=== PATIENT | male | born 1990 | race Caucasian/White ===

== ENCOUNTER 2018-06-16 01:33 | Inpatient (IN) | payer OTHER ==
--- NOTE | 2018-06-16 03:02 | ED PDOC ---
Arrival/HPI - General Chief Complaint: Alcohol Ingestion Time Seen by Provider: 06/16/18 02:16 Historian: Patient - History of Present Illness Narrative History of Present Illness (Text): 27 year old male, with no significant past medical history, presents to the emergency department brought in by EMS and [place] police department for alcohol intoxication tonight. Patient admits to taking 2 Xanax and drinking 2 quart size beer cans tonight. Patient states he told his brother that he was going to kill himself, so his brother called the police. Patient denies any current suicidal/homicidal ideation. He denies any OD. He denies any psych history. Patient denies any fever, chills, chest pain, shortness of breath, nausea, vomiting, diarrhea, urinary symptoms, back pain, neck pain, headache, dizziness, or any other complaints. Time/Duration: Prior to Arrival Symptom Onset: Gradual Activities at Onset: Light Context: Home Past Medical History - Provider Review Nursing Documentation Reviewed: Yes - Infectious Disease Hx of Infectious Diseases: None - Tetanus Immunization Tetanus Immunization: Up to Date - Past Medical History Past Medical History: No Previous - Cardiac Hx Cardiac Disorders: No - Psychiatric Hx Depression: No Hx Emotional Abuse: No Hx Physical Abuse: No Hx Substance Use: Yes - Past Surgical History Past Surgical History: No Previous - Anesthesia Hx Anesthesia: No - Suicidal Assessment Feels Threatened In Home Enviroment: No Family/Social History - Physician Review Nursing Documentation Reviewed: Yes Family/Social History: No Known Family HX Smoking Status: Heavy Smoker > 10 Cigarettes Daily Hx Alcohol Use: Yes Frequency of alcohol use: Daily Hx Substance Use: Yes Substance used: marijuana Amount: 3 Hx Substance Use Treatment: No Allergies/Home Meds Allergies/Adverse Reactions: Allergies No Known Allergies Allergy (Verified 06/16/18 01:56) Home Medications: Home Meds Medication Instructions Recorded Confirmed No Known Home Med 06/16/18 06/16/18 Review of Systems - Physician Review All systems were reviewed & negative as marked: Yes - Review of Systems Constitutional: absent: Fatigue, Weight Change, Fevers, Night Sweats Eyes: absent: Vision Changes, Photophobia, Eye Pain ENT: absent: Hearing Changes, Tinnitus Respiratory: absent: SOB Cardiovascular: absent: Chest Pain Gastrointestinal: absent: Abdominal Pain, Diarrhea, Nausea, Vomiting Genitourinary Male: absent: Dysuria, Frequency, Hematuria Musculoskeletal: absent: Arthralgias, Back Pain, Neck Pain Neurological: absent: Headache, Dizziness Psychiatric: Suicidal Ideation (not currently). absent: Other (homicidal ideation) Physical Exam Vital Signs Reviewed: Yes Vital Signs Temp Pulse Resp BP Pulse Ox 06/16/18 01:57 97.6 F 94 H 18 158/89 H 100 Temperature: Afebrile Blood Pressure: Hypertensive Pulse: Regular Respiratory Rate: Normal Appearance: Positive for: Well-Appearing, Non-Toxic, Comfortable Pain Distress: None Mental Status: Positive for: Alert and Oriented X 3 - Systems Exam Head: Present: Atraumatic, Normocephalic Pupils: Present: PERRL Extroacular Muscles: Present: EOMI Conjunctiva: Present: Normal Mouth: Present: Moist Mucous Membranes Neck: Present: Normal Range of Motion. No: Meningeal Signs, MIDLINE TENDERNESS Respiratory/Chest: Present: Clear to Auscultation, Good Air Exchange. No: Respiratory Distress, Accessory Muscle Use Cardiovascular: Present: Regular Rate and Rhythm, Normal S1, S2. No: Murmurs Abdomen: No: Tenderness, Distention, Peritoneal Signs Back: Present: Normal Inspection Upper Extremity: Present: Normal Inspection. No: Cyanosis, Edema Lower Extremity: Present: Normal Inspection. No: Edema Neurological: Present: GCS=15, CN II-XII Intact, Speech Normal, Motor Func Grossly Intact, Normal Sensory Function, Normal Cerebellar Funct, Gait Normal Skin: Present: Warm, Dry, Normal Color. No: Rashes Psychiatric: Present: Alert, Oriented x 3, Normal Insight, Normal Concentration, Intoxicated Medical Decision Making ED Course and Treatment: 06/16/18 03:02 Impression: 27 year old male presents for alcohol intoxication and suicidal ideation tonight. Denies any hx of psych issues or OD Plan: -- EKG -- Labs -- CXR -- Urinalysis -- One to One -- PES Eval after patient medically cleared. -- Reassess and disposition Prior Visits: Notes and results from previous visits were reviewed. Progress Notes: EKG shows NSR at 91 BPM with no STEMI. Interpreted by me. CXR Impression: As read by [email or web address]. 06/16/18 04:00 Tylenol level elevated: denies any history of tylenol ingestion. Likely Tylenol OD w/ out known ingestion. Will seek medical admission and poison control. Informed pt that he is not medically clear and that he will have to stay for admission 06/16/18 04:35 Code ashlie called. Patient aggressive and trying to leave. Patient will be restra ined and sedated for the safety of himself and the staff. 06/16/18 04:40 RN discussed case with Poison control who recommends Telemetry admission and NAC. 06/16/18 04:46 NAC ordered Case discussed with biomedical engineering technician and Dr. Alexandra who is aware and agrees with the plan. Accepts patient into hospitalist service. - Lab Interpretations I have reviewed the lab results: Yes - EKG Interpretation Interpreted by ED Physician: Yes Type: 12 lead EKG - Scribe Statement The provider has reviewed the documentation as recorded by the Slava Betancourt Provider Scribe Attestation: All medical record entries made by the Chiquitaibfransisca were at my direction and personally dictated by me. I have reviewed the chart and agree that the record accurately reflects my personal performance of the history, physical exam, medical decision making, and the department course for this patient. I have also personally directed, reviewed, and agree with the discharge instructions and disposition. Disposition/Present on Arrival - Present on Arrival Any Indicators Present on Arrival: No History of DVT/PE: No History of Uncontrolled Diabetes: No Urinary Catheter: No History of Decub. Ulcer: No History Surgical Site Infection Following: None - Disposition Have Diagnosis and Disposition been Completed?: Yes Diagnosis: Tylenol overdose, Suicidal ideation Disposition Time: 04:35 Condition: GUARDED
[2018-06-16 03:15] LABS: PH,URINE 5.5 (4.7-8.0); URINE BILIRUBIN NEGATIVE (NEGATIVE); URINE BLOOD NEGATIVE (NEGATIVE); URINE GLUCOSE (UA) NEGATIVE (NEGATIVE); URINE LEUKOCYTE ESTERASE NEGATIVE Leu/uL (NEGATIVE); URINE PROTEIN 30 mg/dL (<30 mg/dL); URINE UROBILINOGEN 0.2 E.U./dL (<1 E.U./dL)
[2018-06-16 03:16] LABS: BASO # 0.03 K/mm3 (0.0-2.0); BASO % 0.3 % (0.0-3.0); EOS # 0.3 (0.0-0.7); EOS % 3.7 % (1.5-5.0); GRAN # 5.1 (1.4-6.5); GRAN % 55.6 % (50.0-68.0); HEMOGLOBIN 16.2 g/dL (14.0-18.0); LYMPH # 3.2 (1.2-3.4); LYMPH % 35.3 % (22.0-35.0); MEAN CELL VOLUME 87.3 fl (80.0-105.0); MEAN CORPUSCULAR HEMOGLOBIN 31.3 pg (25.0-35.0); MEAN CORPUSCULAR HGB CONC 35.8 g/dl (31.0-37.0); MEAN PLATELET VOLUME 9.4 fl (7.0-11.0); MONO # 0.5 (0.1-0.6); MONO % 5.1 % (1.0-6.0); RBC 5.18 10^6/uL (3.5-6.1); URINE APPEARANCE CLEAR (CLEAR); URINE COLOR YELLOW (YELLOW); WHITE BLOOD COUNT 9.2 10^3/ul (4.5-11.0)
[2018-06-16 03:26] LABS: ALB/GLOB RATIO 1.5 (1.1-1.8); ALBUMIN 5.3 g/dL (3.0-4.8); ALT/SGPT 21 U/L (7-56); AST/SGOT 34 U/L (17-59); BLOOD UREA NITROGEN 11 mg/dL (7-21); CALCIUM 9.4 mg/dL (8.4-10.5); GFR NON-AFRICAN AMERICAN > 60
[2018-06-16 03:29] LABS: URINE BACTERIA FEW (NEG); URINE EPITHELIAL CELLS 0 - 2 /hpf (0-5); URINE RBC 0 - 2 /hpf (0-2); URINE WBC 0 - 2 /hpf (0-6)
[2018-06-16 03:31] LABS: SALICYLATE < 1 mg/dL (2.0-20.0)
[2018-06-16 03:45] LABS: BARBITURATES, UR NEGATIVE (NEGATIVE); BENZODIAZEPINES, UR POSITIVE (NEGATIVE); OPIATES, UR NEGATIVE (NEGATIVE); PHENCYCLIDINE, UR POSITIVE (NEGATIVE)
[2018-06-16] MEDS ORDERED: DiphenhydrAMINE 50 mg/ml Inj IVP STA (04:38)
[2018-06-16] MEDS ORDERED: ACETYLCYSTEINE IVPB ONE ×3 (04:43→10:15)
[2018-06-16] MEDS ORDERED: DEXTROSE 5% IVPB ONE ×3 (04:43→10:15)
[2018-06-16] MEDS ORDERED: WATER IVPB ONE ×3 (04:43→10:15)
--- NOTE | 2018-06-16 05:17 | CP.PCM.HP ---
<Alisa Davis - Last Filed: 06/16/18 06:22> History of Present Illness - History of Present Illness History of Present Illness: Admission: Tylenol OD, polysubstance abuse, and ETOH intoxication Mr Luis Christopher, 27 M, active smoker, with no significant past medical history, presents to the emergency department brought in by EMS and [place] police department for alcohol intoxication tonight. Pt is currently chemically sedated with 4 point restraint, so history is limited and mostly relies on ED record Patient admits to taking 2 Xanax and drinking 2 quart size beer cans tonight. Patient states that he told his brother that he was going to kill himself, so his brother called the police. n the ED, VS stable, CBC, CMP are unremarkable. U/A negative for infection. UDS (+) elevated acetaminophen @ 36. (+) phencyclidine, Benzo, and cannabinoids. SHANITA 205. Pt has ingested tylenol for un known amount unknown how long ago. Per ED doc, Poison Control was contacted, started NAC. In the ED, Evans dailey called. Patient aggressive and trying to leave. Patient was restrained and sedated for the safety of himself and the staff with haldol 5 and benadryl 50. EKG shows NSR at [address]/TW changes. QTc 445. CXR shows no active disease, read by me, pending official read. Patient denies any current suicidal/homicidal ideation. denies any psych history. denies any fever, chills, chest pain, shortness of breath, nausea, vomiting, diarrhea, urinary symptoms, back pain, neck pain, headache, dizziness, or any other complaints. PMHx Polysubstance abuse Active smoker PSH unobtainable FH unobtainable SH Active smoker, polysubstance abuse All - NKDA Med - unobtainable PMD - unobtainable Pharmacy - unobtainable Present on Admission - Present on Admission Any Indicators Present on Admission: No Past Patient History - Infectious Disease Hx of Infectious Diseases: None - Tetanus Immunizations Tetanus Immunization: Up to Date - Past Social History Smoking Status: Heavy Smoker > 10 Cigarettes Daily - CARDIAC Hx Cardiac Disorders: No - PULMONARY Hx Tuberculosis: No - NEUROLOGICAL HX Cerebrovascular Accident: No Hx Seizures: No - HEMATOLOGICAL/ONCOLOGICAL Hx Cancer: No Hx Human Immunodeficiency Virus (HIV): No - GENITOURINARY/GYNECOLOGICAL Hx Sexually Transmitted Disorders: No - PSYCHIATRIC Hx Depression: No Hx Emotional Abuse: No Hx Physical Abuse: No Hx Substance Use: Yes - ANESTHESIA Hx Anesthesia: No Meds Allergies/Adverse Reactions: Allergies Allergy/AdvReac Type Severity Reaction Status Date / Time No Known Allergies Allergy Verified 06/16/18 01:56 Physical Exam - Constitutional Additional comments: chemically sedated - Head Exam Head Exam: ATRAUMATIC, NORMAL INSPECTION, NORMOCEPHALIC - Eye Exam Eye Exam: Conjunctival injection Additional comments: pupil constricted 1mm b/l, - ENT Exam ENT Exam: Mucous Membranes Moist - Neck Exam Additional comments: Supple, No JVD - Respiratory Exam Respiratory Exam: Clear to Auscultation Bilateral Additional comments: Bronchial sounds - Cardiovascular Exam Cardiovascular Exam: REGULAR RHYTHM, +S1, +S2 - GI/Abdominal Exam GI & Abdominal Exam: Normal Bowel Sounds, Soft. absent: Distended, Firm, Guarding, Rebound, Rigid - Extremities Exam Extremities exam: Positive for: normal capillary refill, normal inspection, pedal pulses present. Negative for: pedal edema - Neurological Exam Additional comments: chemically sedated. move to localized pain. snore occasionally - Psychiatric Exam Psychiatric exam: Flat Affect - Skin Skin Exam: Dry, Warm Results - Vital Signs Recent Vital Signs: Last Vital Signs Temp 97.6 F 06/16/18 01:57 Pulse 94 H 06/16/18 01:57 Resp 18 06/16/18 01:57 BP 158/89 H 06/16/18 01:57 Pulse Ox 100 06/16/18 01:57 - Labs Result Diagrams: 06/16/18 03:02 06/16/18 03:02 Labs: Laboratory Results - last 24 hr 06/16/18 06/16/18 06/16/18 03:02 03:02 03:02 WBC 9.2 RBC 5.18 Hgb 16.2 Hct 45.2 MCV 87.3 MCH 31.3 MCHC 35.8 RDW 12.0 Plt Count 267 MPV 9.4 Gran % 55.6 Lymph % (Auto) 35.3 H [place] % (Auto) 5.1 Eos % (Auto) 3.7 Baso % (Auto) 0.3 Gran # 5.10 Lymph # (Auto) 3.2 [place] # (Auto) 0.5 Eos # (Auto) 0.3 Baso # (Auto) 0.03 Sodium 146 Potassium 3.9 Chloride 107 Carbon Dioxide 24 Anion Gap 19 BUN 11 Creatinine 1.1 Est GFR ( Amer) > 60 Est GFR (Non-Af Amer) > 60 Random Glucose 104 Calcium 9.4 Magnesium 2.4 H Total Bilirubin 0.4 AST 34 ALT 21 Alkaline Phosphatase 77 Total Protein 8.8 H Albumin 5.3 H Globulin 3.5 Albumin/Globulin Ratio 1.5 Urine Color Yellow Urine Appearance Clear Urine pH 5.5 Ur Specific [place] >= 1.030 Urine Protein 30 H Urine Glucose (UA) Negative Urine Ketones Negative Urine Blood Negative Urine Nitrate Negative Urine Bilirubin Negative Urine Urobilinogen 0.2 Ur Leukocyte Esterase Negative Urine RBC 0 - 2 Urine WBC 0 - 2 Ur Epithelial Cells 0 - 2 Urine Bacteria Few Salicylates Urine Opiates Screen Urine Methadone Screen Acetaminophen Ur Barbiturates Screen Ur Phencyclidine Scrn Ur Amphetamines Screen U Benzodiazepines Scrn U Oth Cocaine Metabols U Cannabinoids Screen Alcohol, Quantitative 06/16/18 06/16/18 06/16/18 03:02 03:02 03:02 WBC RBC Hgb Hct MCV MCH MCHC RDW Plt Count MPV Gran % Lymph % (Auto) [place] % (Auto) Eos % (Auto) Baso % (Auto) Gran # Lymph # (Auto) [place] # (Auto) Eos # (Auto) Baso # (Auto) Sodium Potassium Chloride Carbon Dioxide Anion Gap BUN Creatinine Est GFR ( Amer) Est GFR (Non-Af Amer) Random Glucose Calcium Magnesium Total Bilirubin AST ALT Alkaline Phosphatase Total Protein Albumin Globulin Albumin/Globulin Ratio Urine Color Urine Appearance Urine pH Ur Specific [place] Urine Protein Urine Glucose (UA) Urine Ketones Urine Blood Urine Nitrate Urine Bilirubin Urine Urobilinogen Ur Leukocyte Esterase Urine RBC Urine WBC Ur Epithelial Cells Urine Bacteria Salicylates < 1 L Urine Opiates Screen Negative Urine Methadone Screen Negative Acetaminophen 36.0 H Ur Barbiturates Screen Negative Ur Phencyclidine Scrn Positive H Ur Amphetamines Screen Negative U Benzodiazepines Scrn Positive H U Oth Cocaine Metabols Negative U Cannabinoids Screen Positive H Alcohol, Quantitative 205 H Assessment & Plan - Assessment and Plan (Free Text) Plan: Mr Luis Christopher, 27 M, active smoker, with no significant past medical history, admitted for tylenol overdose, polysubstance abuse (+) phencyclidine, Benzo, and cannabinoids, and alcohol intoxication (SHANITA 205). Pt had thought about suicide prior to ED arrival but denied suidical ideation in ED. Evans dailey was called in ED and Patient is currently on 4-point restrain with chemical sedation with haldol 5 and benadryl 50 for the safety of himself and the staff. Tylenol overdose - Nac - follow up on liver function test - poison control contact polysubstance abuse (+) phencyclidine, Benzo, and cannabinoids - Continuous CO2 monitor - neuro check - staff counsel for cessation after pt wakes up ETOH intoxication - CIWA with ativan PRN, banana bag because pt is chemically sedated - Avoid librium due to tylenol overdose and its effect on liver - staff counsel for cessation Active smoker - May add nicoderm patch after pt awake Behavioral issue, likely from PCP - restrain PRN - Psych consult - continous CO2 monitor/neuro check while under chemical sedation Questionable Suicidal ideation (SI) - No need 1:1 for now because pt denied SI in ED - Psych on board NPO for now as pt is chemically sedated Pepcid IV for GI stress ulcer prevention Heparin SC for DVT prevention Aspiration precautions s/r/d w Dr Ruiz <Jordana Ruiz - Last Filed: 06/17/18 02:28> Results - Vital Signs Recent Vital Signs: Last Vital Signs Temp 98.8 F 06/17/18 00:01 Pulse 73 06/17/18 00:01 Resp 19 06/17/18 00:01 BP 131/70 06/17/18 00:01 Pulse Ox 100 06/17/18 00:01 - Labs Result Diagrams: 06/16/18 03:02 06/16/18 03:02 Labs: Laboratory Results - last 24 hr 06/16/18 06/16/18 06/16/18 03:02 03:02 03:02 WBC 9.2 RBC 5.18 Hgb 16.2 Hct 45.2 MCV 87.3 MCH 31.3 MCHC 35.8 RDW 12.0 Plt Count 267 MPV 9.4 Gran % 55.6 Lymph % (Auto) 35.3 H [place] % (Auto) 5.1 Eos % (Auto) 3.7 Baso % (Auto) 0.3 Gran # 5.10 Lymph # (Auto) 3.2 [place] # (Auto) 0.5 Eos # (Auto) 0.3 Baso # (Auto) 0.03 Sodium 146 Potassium 3.9 Chloride 107 Carbon Dioxide 24 Anion Gap 19 BUN 11 Creatinine 1.1 Est GFR ( Amer) > 60 Est GFR (Non-Af Amer) > 60 Random Glucose 104 Calcium 9.4 Magnesium 2.4 H Total Bilirubin 0.4 AST 34 ALT 21 Alkaline Phosphatase 77 Total Protein 8.8 H Albumin 5.3 H Globulin 3.5 Albumin/Globulin Ratio 1.5 Urine Color Yellow Urine Appearance Clear Urine pH 5.5 Ur Specific [place] >= 1.030 Urine Protein 30 H Urine Glucose (UA) Negative Urine Ketones Negative Urine Blood Negative Urine Nitrate Negative Urine Bilirubin Negative Urine Urobilinogen 0.2 Ur Leukocyte Esterase Negative Urine RBC 0 - 2 Urine WBC 0 - 2 Ur Epithelial Cells 0 - 2 Urine Bacteria Few Salicylates Urine Opiates Screen Urine Methadone Screen Acetaminophen Ur Barbiturates Screen Ur Phencyclidine Scrn Ur Amphetamines Screen U Benzodiazepines Scrn U Oth Cocaine Metabols U Cannabinoids Screen Alcohol, Quantitative 06/16/18 06/16/18 06/16/18 03:02 03:02 03:02 WBC RBC Hgb Hct MCV MCH MCHC RDW Plt Count MPV Gran % Lymph % (Auto) [place] % (Auto) Eos % (Auto) Baso % (Auto) Gran # Lymph # (Auto) [place] # (Auto) Eos # (Auto) Baso # (Auto) Sodium Potassium Chloride Carbon Dioxide Anion Gap BUN Creatinine Est GFR ( Amer) Est GFR (Non-Af Amer) Random Glucose Calcium Magnesium Total Bilirubin AST ALT Alkaline Phosphatase Total Protein Albumin Globulin Albumin/Globulin Ratio Urine Color Urine Appearance Urine pH Ur Specific [place] Urine Protein Urine Glucose (UA) Urine Ketones Urine Blood Urine Nitrate Urine Bilirubin Urine Urobilinogen Ur Leukocyte Esterase Urine RBC Urine WBC Ur Epithelial Cells Urine Bacteria Salicylates < 1 L Urine Opiates Screen Negative Urine Methadone Screen Negative Acetaminophen 36.0 H Ur Barbiturates Screen Negative Ur Phencyclidine Scrn Positive H Ur Amphetamines Screen Negative U Benzodiazepines Scrn Positive H U Oth Cocaine Metabols Negative U Cannabinoids Screen Positive H Alcohol, Quantitative 205 H Attending/Attestation - Attestation I have personally seen and examined this patient.: No I have fully participated in the care of the patient.: Yes I have reviewed all pertinent clinical information: Yes Notes (Text): 06/17/18 02:28 pt. was seen, but not examined nor interviewed because at time seen pt. was heavily sedated.
[2018-06-16] MEDS: Folic Acid 1 MG, Thiamine 100 MG, Multivitamin (MVI) 10 ML in Dextrose 5% In Water 1,00... IV SCH (06:06)
--- NOTE | 2018-06-16 10:33 | CARD ---
APPROVED REPORT Date of service: 06/16/2018 EKG Measurement Heart [id number] <Conclusion> Normal sinus rhythm Normal Electrocardiogram
--- NOTE | 2018-06-16 11:09 | RAD ---
Date of service: 06/16/2018 HISTORY: med clear COMPARISON: No prior. FINDINGS: LUNGS: No active pulmonary disease. PLEURA: No significant pleural effusion identified, no pneumothorax apparent. CARDIOVASCULAR: Normal. OSSEOUS STRUCTURES: No significant abnormalities. VISUALIZED UPPER ABDOMEN: Normal. OTHER FINDINGS: None. IMPRESSION: No active disease.
[2018-06-16 13:55] VITALS: BMI 22.8
[2018-06-16] MEDS ORDERED: Influenza Vaccine 60 mcg/0.5 mL SYR (4YR UP) IM ONE (13:55)
[2018-06-16] MEDS ORDERED: Pneumococcal 23-Valent Vaccine IM ONE (13:55)
[2018-06-17] MEDS: Folic Acid 1 MG, Thiamine 100 MG, Multivitamin (MVI) 10 ML in Dextrose 5% In Water 1,00... IV SCH (05:54)
[2018-06-17 07:46] VITALS: O2SAT 98
[2018-06-17 07:54] LABS: BASO # 0.02 K/mm3 (0.0-2.0); BASO % 0.3 % (0.0-3.0); EOS # 0.3 (0.0-0.7); EOS % 4.8 % (1.5-5.0); GRAN # 3.16 (1.4-6.5); HEMOGLOBIN 15.5 g/dL (14.0-18.0); LYMPH # 2.2 (1.2-3.4); MEAN CELL VOLUME 86.2 fl (80.0-105.0); MEAN CORPUSCULAR HEMOGLOBIN 30.6 pg (25.0-35.0); MEAN CORPUSCULAR HGB CONC 35.5 g/dl (31.0-37.0); MEAN PLATELET VOLUME 9.6 fl (7.0-11.0); MONO # 0.4 (0.1-0.6); MONO % 6.9 % (1.0-6.0); RBC 5.07 10^6/uL (3.5-6.1); RED CELL DISTRIBUTION WIDTH 11.9 % (11.5-14.5); WHITE BLOOD COUNT 6.1 10^3/ul (4.5-11.0)
[2018-06-17 08:47] LABS: ALBUMIN 4.5 g/dL (3.0-4.8); BLOOD UREA NITROGEN 7 mg/dL (7-21); CALCIUM 10.2 mg/dL (8.4-10.5); GFR NON-AFRICAN AMERICAN > 60
[2018-06-17 08:48] LABS: ALB/GLOB RATIO 1.5 (1.1-1.8); ALT/SGPT 25 U/L (7-56); AST/SGOT 50 U/L (17-59)
[2018-06-17] MEDS ORDERED: Potassium Chloride 20 mEq ER Tab PO ONE (11:08)
--- NOTE | 2018-06-17 11:22 | CP.PCM.PN ---
Subjective - Date & Time of Evaluation Date of Evaluation: 06/17/18 Time of Evaluation: 08:30 - Subjective Subjective: PGY-1 Lexy Grey D.O. Medicine progress note for Dr. Morgan's service: Patient was seen and examined this morning. Objective - Vital Signs/Intake and Output Vital Signs (last 24 hours): Temp Pulse Resp BP Pulse Ox 97.6 F 83 22 129/92 H 98 06/17/18 06:00 06/17/18 06:00 06/17/18 06:00 06/17/18 06:00 06/17/18 06:00 Intake and Output: 06/17/18 06/17/18 06:59 18:59 Intake Total 1883 Balance 1883 - Medications Medications: Current Medications Famotidine (Pepcid) 20 mg IVP DAILY [facility] Last Admin: 06/17/18 10:19 Dose: 20 mg Heparin Sodium (Porcine) (Heparin) 5,000 units SC Q8 DION; Protocol Last Admin: 06/17/18 05:50 Dose: 5,000 units Folic Acid 1 mg/ Thiamine HCl 100 mg/ Multivitamins/Vitamin C 10 ml/ Dextrose 1,011.2 mls @ 100 mls/hr IV .[id number] DION Last Admin: 06/17/18 05:54 Dose: 100 mls/hr Lorazepam (Ativan) 2 mg IVP Q4 PRN; Protocol PRN Reason: Agitation Last Admin: 06/16/18 22:29 Dose: 2 mg - Labs Labs: 06/17/18 07:00 06/17/18 07:00
--- NOTE | 2018-06-17 12:02 | CP.PCM.DIS ---
<Lexy Grey - Last Filed: 06/17/18 12:09> Provider - Provider Date of Admission: 06/16/18 04:46 Attending physician: Boom Morgan MD Primary care physician: none Consults: psychiatry Time Spent in preparation of Discharge (in minutes): 45 Diagnosis - Discharge Diagnosis (1) Tylenol overdose Status: Resolved Priority: High (2) Alcohol intoxication Status: Resolved Priority: High (3) Polysubstance abuse Status: Chronic Priority: High Hospital Course - Lab Results Lab Results: Most Recent Lab Values WBC 6.1 10^3/ul (4.5-11.0) D 06/17/18 07:00 RBC 5.07 10^6/uL (3.5-6.1) 06/17/18 07:00 Hgb 15.5 g/dL (14.0-18.0) 06/17/18 07:00 Hct 43.7 % (42.0-52.0) 06/17/18 07:00 MCV 86.2 fl (80.0-105.0) 06/17/18 07:00 MCH 30.6 pg (25.0-35.0) 06/17/18 07:00 MCHC 35.5 g/dl (31.0-37.0) 06/17/18 07:00 RDW 11.9 % (11.5-14.5) 06/17/18 07:00 Plt Count 247 10^3/uL (120.0-450.0) 06/17/18 07:00 MPV 9.6 fl (7.0-11.0) 06/17/18 07:00 Gran % 52.0 % (50.0-68.0) 06/17/18 07:00 Lymph % (Auto) 36.0 % (22.0-35.0) H 06/17/18 07:00 Dupage % (Auto) 6.9 % (1.0-6.0) H 06/17/18 07:00 Eos % (Auto) 4.8 % (1.5-5.0) 06/17/18 07:00 Baso % (Auto) 0.3 % (0.0-3.0) 06/17/18 07:00 Gran # 3.16 (1.4-6.5) 06/17/18 07:00 Lymph # (Auto) 2.2 (1.2-3.4) 06/17/18 07:00 Dupage # (Auto) 0.4 (0.1-0.6) 06/17/18 07:00 Eos # (Auto) 0.3 (0.0-0.7) 06/17/18 07:00 Baso # (Auto) 0.02 K/mm3 (0.0-2.0) 06/17/18 07:00 Sodium 138 mmol/L (132-148) 06/17/18 07:00 Potassium 3.5 mmol/L (3.6-5.0) L 06/17/18 07:00 Chloride 100 mmol/L (98-107) 06/17/18 07:00 Carbon Dioxide 28 mmol/L (21-33) 06/17/18 07:00 Anion Gap 13 (10-20) 06/17/18 07:00 BUN 7 mg/dL (7-21) 06/17/18 07:00 Creatinine 1.0 mg/dl (0.8-1.5) 06/17/18 07:00 Est GFR ( Amer) > 60 06/17/18 07:00 Est GFR (Non-Af Amer) > 60 06/17/18 07:00 Random Glucose 94 mg/dL (70-110) 06/17/18 07:00 Calcium 10.2 mg/dL (8.4-10.5) 06/17/18 07:00 Phosphorus 3.6 mg/dL (2.5-4.5) 06/17/18 07:00 Magnesium 2.2 mg/dL (1.7-2.2) 06/17/18 07:00 Total Bilirubin 1.6 mg/dL (0.2-1.3) H 06/17/18 07:00 AST 50 U/L (17-59) 06/17/18 07:00 ALT 25 U/L (7-56) 06/17/18 07:00 Alkaline Phosphatase 74 U/L (38-126) 06/17/18 07:00 Total Protein 7.6 g/dL (5.8-8.3) 06/17/18 07:00 Albumin 4.5 g/dL (3.0-4.8) 06/17/18 07:00 Globulin 3.1 gm/dL 06/17/18 07:00 Albumin/Globulin Ratio 1.5 (1.1-1.8) 06/17/18 07:00 Urine Color Yellow (YELLOW) 06/16/18 03:02 Urine Appearance Clear (CLEAR) 06/16/18 03:02 Urine pH 5.5 (4.7-8.0) 06/16/18 03:02 Ur Specific Freedom >= 1.030 (1.005-1.035) 06/16/18 03:02 Urine Protein 30 mg/dL (<30 mg/dL) H 06/16/18 03:02 Urine Glucose (UA) Negative mg/dL (NEGATIVE) 06/16/18 03:02 Urine Ketones Negative mg/dL (NEGATIVE) 06/16/18 03:02 Urine Blood Negative (NEGATIVE) 06/16/18 03:02 Urine Nitrate Negative (NEGATIVE) 06/16/18 03:02 Urine Bilirubin Negative (NEGATIVE) 06/16/18 03:02 Urine Urobilinogen 0.2 E.U./dL (<1 E.U./dL) 06/16/18 03:02 Ur Leukocyte Esterase Negative Alexander/uL (NEGATIVE) 06/16/18 03:02 Urine RBC 0 - 2 /hpf (0-2) 06/16/18 03:02 Urine WBC 0 - 2 /hpf (0-6) 06/16/18 03:02 Ur Epithelial Cells 0 - 2 /hpf (0-5) 06/16/18 03:02 Urine Bacteria Few (NEG) 06/16/18 03:02 Salicylates < 1 mg/dL (2.0-20.0) L 06/16/18 03:02 Urine Opiates Screen Negative (NEGATIVE) 06/16/18 03:02 Urine Methadone Screen Negative (NEGATIVE) 06/16/18 03:02 Acetaminophen < 10.0 ug/ml (10.0-20.0) L 06/17/18 07:00 Ur Barbiturates Screen Negative (NEGATIVE) 06/16/18 03:02 Ur Phencyclidine Scrn Positive (NEGATIVE) H 06/16/18 03:02 Ur Amphetamines Screen Negative (NEGATIVE) 06/16/18 03:02 U Benzodiazepines Scrn Positive (NEGATIVE) H 06/16/18 03:02 U Oth Cocaine Metabols Negative (NEGATIVE) 06/16/18 03:02 U Cannabinoids Screen Positive (NEGATIVE) H 06/16/18 03:02 Alcohol, Quantitative 205 mg/dL (0-10) H 06/16/18 03:02 - Hospital Course Hospital Course: Mr Luis Christopher, 27 M, active smoker, with no significant past medical history, presents to the emergency department brought in by EMS and [place] police department for alcohol intoxication tonight. He is currently chemically sedated with 4 point restraint, so history is limited and mostly relies on ED record. Patient admits to taking 2 Xanax and drinking 2 quart size beer cans tonight. Patient states that he told his brother that he was going to kill himself, so his brother called the police. In the ED, VS stable, CBC, CMP are unremarkable. UA negative for infection. UDS (+) elevated acetaminophen at 36. (+) phencyclidine, benzos, and cannabinoids. BAL 205. Patient has ingested tylenol for unknown amount unknown how long ago. Per ED doctor, Poison Control was conta cted, started NAC. In the ED, Evans dailey called. Patient aggressive and trying to leave. Patient was restrained and sedated for the safety of himself and the staff with Haldol 5 and benadryl 50. EKG shows NSR at [address]/TW changes. QTc 445. CXR shows no active disease, read by me, pending official read. Patient denies any current suicidal/homicidal ideation. Denies any psych history. Poison control was called, and patient was given IV acetylcysteine. Patient was given PRN Ativan and placed on 1:1 for alcohol withdrawal and agitation. Patient was agitated and hallucinating day 1, but he was much calmer by day 2. His Tylenol level was <10 and LFTs were wnl. Poison control cleared the patient. Psychiatry saw patient for suspected suicidal intent; however, the patient cedric buck denied any suicidal ideation or past attempts. Upon discharge, patient was alert and oriented. He was calm and did not require restraints or PRN Ativan for >12 hours. He was tolerating a regular diet. He was ambulating without any difficulty. Vitals and labs were stable. Discharge Exam - Head Exam Head Exam: ATRAUMATIC, NORMAL INSPECTION, NORMOCEPHALIC - Eye Exam Eye Exam: EOMI, Normal appearance, PERRL - ENT Exam ENT Exam: Mucous Membranes Moist, Normal Exam - Neck Exam Neck exam: Full Rom, Normal Inspection - Respiratory Exam Respiratory Exam: Clear to PA & Lateral, NORMAL BREATHING PATTERN, UNREMARKABLE - Cardiovascular Exam Cardiovascular Exam: REGULAR RHYTHM, +S1, +S2 - GI/Abdominal Exam GI & Abdominal Exam: Normal Bowel Sounds, Soft, Unremarkable - Rectal Exam Rectal Exam: Deferred - Extremities Exam Extremities exam: normal capillary refill, normal inspection, pedal pulses present - Back Exam Back exam: NORMAL INSPECTION - Neurological Exam Neurological exam: Alert, CN II-XII Intact, Normal Gait, Oriented x3 - Psychiatric Exam Psychiatric exam: Normal Affect, Normal Mood - Skin Skin Exam: Dry, Intact, Normal Color, Warm Discharge Plan - Discharge Medications Prescriptions: Folic Acid 1 mg PO DAILY #30 tab Multivitamin [Multivitamins] 1 each PO DAILY #30 capsule Thiamine [Vitamin B1 Tab] 100 mg PO DAILY #30 tab - Follow Up Plan Condition: IMPROVED Disposition: HOME/ ROUTINE Patient education suggested?: Yes Additional Instructions: Please establish care at the [facility] within 3-5 days of discharge. Call [phone] to make an appointment. Stop taking Tylenol. You are highly encouraged to stop drinking alcohol and using street drugs. You will be given a prescription for vitamins. Please take as directed. If symptoms return, present to the nearest emergency room. Referrals: [facility] [Outside] <Boom Morgan - Last Filed: 06/17/18 13:19> Provider - Provider Date of Admission: 06/16/18 04:46 Attending physician: Boom Morgan MD Hospital Course - Lab Results Lab Results: Most Recent Lab Values WBC 6.1 10^3/ul (4.5-11.0) D 06/17/18 07:00 RBC 5.07 10^6/uL (3.5-6.1) 06/17/18 07:00 Hgb 15.5 g/dL (14.0-18.0) 06/17/18 07:00 Hct 43.7 % (42.0-52.0) 06/17/18 07:00 MCV 86.2 fl (80.0-105.0) 06/17/18 07:00 MCH 30.6 pg (25.0-35.0) 06/17/18 07:00 MCHC 35.5 g/dl (31.0-37.0) 06/17/18 07:00 RDW 11.9 % (11.5-14.5) 06/17/18 07:00 Plt Count 247 10^3/uL (120.0-450.0) 06/17/18 07:00 MPV 9.6 fl (7.0-11.0) 06/17/18 07:00 Gran % 52.0 % (50.0-68.0) 06/17/18 07:00 Lymph % (Auto) 36.0 % (22.0-35.0) H 06/17/18 07:00 Dupage % (Auto) 6.9 % (1.0-6.0) H 06/17/18 07:00 Eos % (Auto) 4.8 % (1.5-5.0) 06/17/18 07:00 Baso % (Auto) 0.3 % (0.0-3.0) 06/17/18 07:00 Gran # 3.16 (1.4-6.5) 06/17/18 07:00 Lymph # (Auto) 2.2 (1.2-3.4) 06/17/18 07:00 Dupage # (Auto) 0.4 (0.1-0.6) 06/17/18 07:00 Eos # (Auto) 0.3 (0.0-0.7) 06/17/18 07:00 Baso # (Auto) 0.02 K/mm3 (0.0-2.0) 06/17/18 07:00 Sodium 138 mmol/L (132-148) 06/17/18 07:00 Potassium 3.5 mmol/L (3.6-5.0) L 06/17/18 07:00 Chloride 100 mmol/L (98-107) 06/17/18 07:00 Carbon Dioxide 28 mmol/L (21-33) 06/17/18 07:00 Anion Gap 13 (10-20) 06/17/18 07:00 BUN 7 mg/dL (7-21) 06/17/18 07:00 Creatinine 1.0 mg/dl (0.8-1.5) 06/17/18 07:00 Est GFR ( Amer) > 60 06/17/18 07:00 Est GFR (Non-Af Amer) > 60 06/17/18 07:00 Random Glucose 94 mg/dL (70-110) 06/17/18 07:00 Calcium 10.2 mg/dL (8.4-10.5) 06/17/18 07:00 Phosphorus 3.6 mg/dL (2.5-4.5) 06/17/18 07:00 Magnesium 2.2 mg/dL (1.7-2.2) 06/17/18 07:00 Total Bilirubin 1.6 mg/dL (0.2-1.3) H 06/17/18 07:00 AST 50 U/L (17-59) 06/17/18 07:00 ALT 25 U/L (7-56) 06/17/18 07:00 Alkaline Phosphatase 74 U/L (38-126) 06/17/18 07:00 Total Protein 7.6 g/dL (5.8-8.3) 06/17/18 07:00 Albumin 4.5 g/dL (3.0-4.8) 06/17/18 07:00 Globulin 3.1 gm/dL 06/17/18 07:00 Albumin/Globulin Ratio 1.5 (1.1-1.8) 06/17/18 07:00 Urine Color Yellow (YELLOW) 06/16/18 03:02 Urine Appearance Clear (CLEAR) 06/16/18 03:02 Urine pH 5.5 (4.7-8.0) 06/16/18 03:02 Ur Specific Freedom >= 1.030 (1.005-1.035) 06/16/18 03:02 Urine Protein 30 mg/dL (<30 mg/dL) H 06/16/18 03:02 Urine Glucose (UA) Negative mg/dL (NEGATIVE) 06/16/18 03:02 Urine Ketones Negative mg/dL (NEGATIVE) 06/16/18 03:02 Urine Blood Negative (NEGATIVE) 06/16/18 03:02 Urine Nitrate Negative (NEGATIVE) 06/16/18 03:02 Urine Bilirubin Negative (NEGATIVE) 06/16/18 03:02 Urine Urobilinogen 0.2 E.U./dL (<1 E.U./dL) 06/16/18 03:02 Ur Leukocyte Esterase Negative Alexander/uL (NEGATIVE) 06/16/18 03:02 Urine RBC 0 - 2 /hpf (0-2) 06/16/18 03:02 Urine WBC 0 - 2 /hpf (0-6) 06/16/18 03:02 Ur Epithelial Cells 0 - 2 /hpf (0-5) 06/16/18 03:02 Urine Bacteria Few (NEG) 06/16/18 03:02 Salicylates < 1 mg/dL (2.0-20.0) L 06/16/18 03:02 Urine Opiates Screen Negative (NEGATIVE) 06/16/18 03:02 Urine Methadone Screen Negative (NEGATIVE) 06/16/18 03:02 Acetaminophen < 10.0 ug/ml (10.0-20.0) L 06/17/18 07:00 Ur Barbiturates Screen Negative (NEGATIVE) 06/16/18 03:02 Ur Phencyclidine Scrn Positive (NEGATIVE) H 06/16/18 03:02 Ur Amphetamines Screen Negative (NEGATIVE) 06/16/18 03:02 U Benzodiazepines Scrn Positive (NEGATIVE) H 06/16/18 03:02 U Oth Cocaine Metabols Negative (NEGATIVE) 06/16/18 03:02 U Cannabinoids Screen Positive (NEGATIVE) H 06/16/18 03:02 Alcohol, Quantitative 205 mg/dL (0-10) H 06/16/18 03:02 Attending/Attestation - Attestation I have personally seen and examined this patient.: Yes I have fully participated in the care of the patient.: Yes I have reviewed all pertinent clinical information, including history, physical exam and plan: Yes Notes (Text): 06/17/18 13:16 Attending note; Patient seen and examined with resident. Patient is alert and awake. Denies any abdominal pain, nausea, vomiting. Denies any chest pain, shortness of breath. Tolerating diet well. Ambulating fine. Patient is a 27 -year-old male with a history of alcohol abuse, active smoker and drug abuse was admitted for mental status.The patient was found by EMS and [place] police department for alcohol intoxication. 1. Tylenol use; patient had elevated Tylenol level at the time of admission. Treated with N-acetylcysteine. Currently Tylenol less than 10. Poison control informed. Patient is cleared. LFTs normal. 2. Alcohol abuse; complete alcohol cessation is strongly recommended. Advised to follow-up with AA meetings. 3. Drug abuse; patient is positive for cannabis, benzo, PCP in urine drug screen. Complete drug abuse cessation is strongly advised. 4. Active smoking; smoking cessation is strongly advised. Patient was initially placed on one-to-one for possible suicidal attempt. Psychiatric evaluation appreciated. Outpatient follow-up information given by psychiatrist. Patient will be discharged home. Patient will follow-up with [facility] clinic upon discharge. Advised to follow-up with [facility] psychiatric clinic upon discharge. 06/17/18 13:18
[2018-06-17 12:09] VITALS: BP 143/80; RESP 17; TEMP 98.4
[2018-06-17 13:10] VITALS: PULSE 80
--- NOTE | 2018-06-18 01:00 | CON ---
DATE: 06/17/2018 HISTORY OF PRESENT ILLNESS: Shortly, the patient is a 27-year-old male with not known previous psychiatric history. The patient has history of polysubstance abuse and dependence. The patient denied history of being admitted to the Psychiatric Inpatient Unit. The patient denied history of suicidal attempts in the past. The patient was admitted status post overdose on alcohol. Urine drug screen was positive for cannabis, benzodiazepines and PCP. Acetaminophen level was 36. Alcohol level was 205. Psych consult was called for evaluation of possible depressive symptoms and status post overdose. The patient was seen and examined. The patient presented to be calm and cooperative, socially appropriate. The patient said that he does not exactly remember how he ended up on the hospital. What the patient remember is that he was drinking with his friend and his friend offered the patient to take Xanax. The patient reported that he had history of abusing Xanax and he knows what medication is. He said that he wanted to get high. The patient took one dose of Xanax. The patient does not remember how many mg. After that, they were keep drinking and his friend do offer another pill of Xanax. The patient reported that he wanted to get high again. After a while, the patient reported that he started to "crush" from the alcohol as well as Xanax. He rushed to the medicine cabinet and he started to look for the medication to start feeling better. The patient reported that he adamantly did not want to kill himself. The patient does not remember what exactly he told his cousin but remember was not feeling well. The patient adamantly denied that he wanted to kill himself and had no reasonable explanation for possible suicidal statements. Going back to the patient's presentation as of now, the patient is alert and oriented, pleasant, cooperative. The patient seems to have good understanding of the situation and what was the circumstances of his admission to the medical site. 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 The patient reported that he was stressed out because of his daughter who is [id number], needs to have surgery because she has hearing problem. 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 The patient reported that he lives in the uncle's house. The patient denied hearing voices, denied seeing things, denied paranoid ideations. The patient denied any thoughts of harming himself or others. The patient wants to get better. The patient wants to quit drinking. The patient wants to be independent and find another job what he likes. The patient reported that he feels happy to be alive. The patient acknowledged of dangerousness of his behavior drinking, popping pills. The patient denied history of being evaluated by psychiatrist. Denied history of being admitted to the Psychiatric Inpatient Unit. The patient denied suicidal attempts in the past. Denied suicidal ideations during the interview. Vital signs reviewed. Temperature 98.4, pulse is 80, blood pressure 143/80, respirations 70, oxygen saturation is 98. Medications reviewed. The patient is on Pepcid, folic acid, heparin and Ativan. Labs reviewed. As this mortgage loan underwriter mentioned above, the patient was positive for phencyclidine, benzodiazepines and cannabis. Acetaminophen was 36 but is trending down. Alcohol level is 205. MENTAL STATUS EXAMINATION: The patient presented to be alert and oriented, pleasant, cooperative, muscle build young man. Fair eye contact. Speech was normal rate, tone, quality and quantity. Mood described little bit depressed. Affect was reactive, mood congruent. Thought process was coherent and goal directed. Thought content, the patient denied visual, auditory, tactile hallucinations. Denied paranoid ideation. The patient denied thoughts of harming himself or others. Denied intent or plan. The patient denied hearing voices, denied seeing things, denied paranoid ideation. The patient does not present to be psychotic. Insight and judgment seems to be improving. Impulses are well controlled. IMPRESSION: The patient is status post accidental overdose of Tylenol. The patient also was intoxicated with alcohol. PCP also positive in the urine. History of polysubstance abuse and dependence, rule out adjustment disorder. This mortgage loan underwriter offered the patient admission for further evaluation and stabilization and observation. The patient declined that offer. The patient reports that he does not feel depressed, does not have any thoughts of harming himself or others, feels "happy to be alive, I need to raise my daughter". The patient was educated about outpatient sources in the community. At present moment, the patient does not meet the criteria for [facility] screening. This mortgage loan underwriter provided the patient with information about outpatient clinics. The patient pose no imminent danger to self or others. Should you have any questions, give me a call back. Thank you very much for letting me participate in care of your patient. Case was discussed with Dr. Morgan. Sweetie Mullen MD [id number]
== END 2018-06-17 15:10 | disposition home or self-care (01) | DRG 450 ==
LOC: ED 01:33 → ERH 04:46 → 2RNO 18:04
PROVIDERS: ADMIT Internal Medicine; ATTEND Internal Medicine
DX: T39.1X2A Poisoning by 4-Aminophenol derivatives, intentional self-harm, initial encounter (principal); F10.129 Alcohol abuse with intoxication, unspecified; Y90.7 Blood alcohol level of 200-239 mg/100 ml; F19.10 Other psychoactive substance abuse, uncomplicated; F17.210 Nicotine dependence, cigarettes, uncomplicated

== ENCOUNTER 2018-07-15 11:05 | Emergency (ER) | payer OTHER ==
[2018-07-15 11:17] VITALS: BMI 23.8
--- NOTE | 2018-07-15 12:10 | ED PDOC ---
Arrival/HPI - General Chief Complaint: Upper Extremity Problem/Injury Time Seen by Provider: 07/15/18 11:09 Historian: Patient - History of Present Illness Narrative History of Present Illness (Text): 07/15/18 12:11 28-year-old male presents today with left forearm pain 3 weeks. Patient states about a month ago he had an IV placed into the dorsal aspect of his left forearm. Patient states about a week after that he noticed a small lump over the dorsal aspect of the forearm. Patient states he has slight pain at the site. He states when he pushes on that he feels pain going up the vein into the arm. He denies numbness weakness or tingling in the extremity. No medications have been taken for pain at home. He denies fevers or chills. He denies swelling. No other complaints. Past Medical History - Provider Review Nursing Documentation Reviewed: Yes - Travel History Have you recently traveled outside [place] w/in the past 3 mons?: No - Infectious Disease Hx of Infectious Diseases: None - Tetanus Immunization Tetanus Immunization: Up to Date - Past Medical History Past Medical History: No Previous - Cardiac Hx Cardiac Disorders: No - Pulmonary Hx Respiratory Disorders: No - Neurological Hx Neurological Disorder: No - HEENT Hx HEENT Disorder: No - Renal Hx Renal Disorder: No - Endocrine/Metabolic Hx Endocrine Disorders: No - Hematological/Oncological Hx Blood Disorders: No - Integumentary Hx Dermatological Disorder: No Other/Comment: laceration 2014 - Musculoskeletal/Rheumatological Hx Falls: No - Gastrointestinal Hx Gastrointestinal Disorders: No - Genitourinary/Gynecological Hx Genitourinary Disorders: Yes Hx Hematuria: Yes (2011) Hx Sexually Transmitted Diseases: No - Psychiatric Hx Psychophysiologic Disorder: Yes (no psych history) Hx Anxiety: Yes Hx Depression: No Hx Emotional Abuse: No Hx Physical Abuse: No Hx Substance Use: Yes (+brnzos/cannabus/acetaminophine/phencyclidine) Other/Comment: pt denies drug alcohol dependency, but tested + for phencyclidine, benzos, acetomeniphine, cannabus - Past Surgical History Past Surgical History: No Previous - Surgical History Hx Tonsillectomy: Yes - Anesthesia Hx Anesthesia: No - Suicidal Assessment Feels Threatened In Home Enviroment: No Family/Social History - Physician Review Nursing Documentation Reviewed: Yes Family/Social History: Unknown Family HX Smoking Status: Heavy Smoker > 10 Cigarettes Daily Hx Alcohol Use: Yes (+alcohol level 205) Frequency of alcohol use: Daily Hx Substance Use: Yes (+brnzos/cannabus/acetaminophine/phencyclidine) Substance used: marijuana Amount: 3 Hx Substance Use Treatment: No Allergies/Home Meds Allergies/Adverse Reactions: Allergies No Known Allergies Allergy (Verified 06/16/18 01:56) Review of Systems - Review of Systems Constitutional: absent: Fatigue, Fevers Respiratory: absent: SOB, Cough Cardiovascular: absent: Chest Pain, Palpitations Gastrointestinal: absent: Abdominal Pain, Nausea, Vomiting Musculoskeletal: Arthralgias. absent: Back Pain, Neck Pain Skin: absent: Rash, Pruritis, Abscess, Cellulitis Neurological: absent: Headache, Dizziness Psychiatric: absent: Anxiety, Depression Physical Exam Vital Signs Reviewed: Yes Vital Signs Temp Pulse Resp BP Pulse Ox 07/15/18 11:16 98.2 F 76 18 134/87 98 Temperature: Afebrile Blood Pressure: Normal Pulse: Regular Respiratory Rate: Normal Appearance: Positive for: Well-Appearing, Non-Toxic, Comfortable Pain Distress: None Mental Status: Positive for: Alert and Oriented X 3 - Systems Exam Head: Present: Atraumatic Mouth: Present: Moist Mucous Membranes Respiratory/Chest: Present: Clear to Auscultation, Good Air Exchange. No: Respiratory Distress, Accessory Muscle Use Cardiovascular: Present: Regular Rate and Rhythm, Normal S1, S2. No: Murmurs Back: Present: Normal Inspection Upper Extremity: Present: Normal ROM, NORMAL PULSES, Tenderness (left forearm; there is a small 2cm hard mobile lump without erythema, minimal tender noted along the dorsal aspect of the left forearm over the vein. ), Neurovascularly Intact, Capillary Refill < 2s. No: Swelling, Erythema Lower Extremity: Present: Normal ROM Neurological: Present: GCS=15, Speech Normal Skin: Present: Warm, Dry, Normal Color. No: Rashes Psychiatric: Present: Alert, Oriented x 3 Medical Decision Making ED Course and Treatment: 07/15/18 13:24 28-year-old male with left forearm pain and lump at site of IV insertion about a month ago. Venous duplex of the left upper arm shows a cephalic vein thrombus. Motrin given for pain. Patient was advised of superficial thrombophlebitis. He was advised warm compresses and Motrin/antibiotics for a medications. Patient was advised to return in 7-10 days for repeat ultrasound. Patient was advised immediate return if symptoms worsen persist or if new concerning symptoms develop. pt was advised to f/u with pmd and vascular specialist. Patient verbalizes understanding of discharge instructions and need for immediate followup. all aspects of this case were discussed the attending of record. Impression: Thrombophlebitis Motrin every 6 hours as needed for pain Warm compresses to the affected area frequently Follow-up with the primary care physician within the next 2 days Follow-up with the vascular specialist within the next 2 days Return in 7-10 days for repeat ultrasound. - RAD Interpretation Radiology Orders: 07/15/18 12:05 DUPLEX UPPER EXTRM VEIN LEFT [US] Stat Disposition/Present on Arrival - Present on Arrival Any Indicators Present on Arrival: No History of DVT/PE: No History of Uncontrolled Diabetes: No Urinary Catheter: No History of Decub. Ulcer: No History Surgical Site Infection Following: None - Disposition Have Diagnosis and Disposition been Completed?: Yes Diagnosis: Superficial thrombophlebitis of arm Disposition: HOME/ ROUTINE Disposition Time: 13:00 Patient Plan: Discharge Condition: GOOD Discharge Instructions (ExitCare): Superficial Phlebitis Additional Instructions: you have a blood clot in the left arm that is superficial (close to the surface) this can turn into a blood clot (Deep Venous Thrombosis). You must Follow up closely to make sure this superficial clot resolves and does not become a DVT. Motrin every 6 hours as needed for pain Warm compresses to the affected area frequently Follow-up with the primary care physician within the next 2 days Follow-up with the vascular specialist within the next 2 days Return in 7-10 days for repeat ultrasound. Prescriptions: Ibuprofen [Motrin] 600 mg PO Q6H PRN #20 tab PRN Reason: pain/fever reduction Referrals: Scott Quintanilla MD [Staff Provider] - Follow up with primary Nataly Small MD [Medical Doctor] - Follow up with primary [facility] [Outside] - Follow up with primary Forms: [employer] (Czech), WORK NOTE
[2018-07-15 13:46] VITALS: TEMP 98
[2018-07-15 13:48] VITALS: BP 119/53; PULSE 85; RESP 19; O2SAT 99
--- NOTE | 2018-07-16 14:20 | US ---
PROCEDURE: Left upper extremity venous ultrasound HISTORY: Arm pain and swelling. Evaluate for deep venous thrombosis. PHYSICIAN(S): Scott Quintanilla MD. FINDINGS: The visualized leftinternal jugular vein is sonographically normal and compressible. No evidence of obstruction or thrombus is seen. The visualized segments of the left subclavian vein are patent with normal waveforms. No sonographic evidence of obstruction or thrombosis is seen. The visualized deep venous system of the proximal leftupper extremity is sonographically normal and compressible. There is segmental superficial thrombophlebitis in the left cephalic vein in the forearm, presumably related to IV insertion IMPRESSION: 1. No sonographic evidence for deep venous thrombosis in the visualized segments of the left upper extremity. 2. Segmental superficial thrombophlebitis in the left cephalic vein in the forearm, presumably related to IV insertion
== END 2018-07-15 13:47 | disposition home or self-care (01) ==
LOC: ED 11:05
DX: I80.8 Phlebitis and thrombophlebitis of other sites (principal); F17.210 Nicotine dependence, cigarettes, uncomplicated

== ENCOUNTER 2018-08-21 22:27 | Emergency (ER) | payer OTHER ==
[2018-08-21 22:29] VITALS: BMI 23.8
== END 2018-08-22 00:21 | disposition left against medical advice (07) ==
LOC: ED 22:27
DX: Z02.89 Encounter for other administrative examinations (principal); I80.8 Phlebitis and thrombophlebitis of other sites